=== PATIENT | female | born 1955 | race Caucasian/White ===

== ENCOUNTER 2023-05-25 05:47 | Observation (INO) | payer MEDICARE ==
[2023-05-25] MEDS ORDERED: Fentanyl 250 MCG/5 ML VIAL ONE (06:36)
[2023-05-25] MEDS ORDERED: SUGAMMADEX SODIUM 200 MG/2 ML VIAL ONE (06:36)
[2023-05-25] MEDS ORDERED: EPINEPHrine 1 MG/ML AMP ONE (07:03)
[2023-05-25] MEDS ORDERED: Bupivacaine 0.25% HCL 30 ML VIAL ONE (07:03)
[2023-05-25] MEDS ORDERED: LevoFLOXacin 500 mg/D5W 100 ML BAG ONE (07:27)
[2023-05-25] MEDS ORDERED: PHENYLEPHRINE-NS 100 MCG/ML 10 ML SYRINGE ONE (07:40)
[2023-05-25] MEDS ORDERED: Rocuronium Bromide 10 MG/ML (10ML VIAL) ONE (07:40)
[2023-05-25] MEDS ORDERED: Ondansetron PF 4 MG/2 ML Vial ONE (07:40)
[2023-05-25] MEDS ORDERED: Dexamethasone 20 MG/5 ML VIAL ONE (07:40)
[2023-05-25] MEDS ORDERED: Lidocaine 1% PF 5 ML VIAL ONE (07:40)
[2023-05-25] MEDS ORDERED: PROPOFOL 200 MG/20 ML VIAL ONE (07:40)
[2023-05-25] MEDS ORDERED: Promethazine HCl 25 MG/ML VIAL IM PRN ×2 (07:58→10:03)
[2023-05-25] MEDS ORDERED: Ondansetron HCl/PF 4 MG/2 ML Vial IVP PRN (07:58)
[2023-05-25] MEDS ORDERED: Rocuronium Bromide 50 MG/5 ML VIAL ONE (08:41)
[2023-05-25] MEDS ORDERED: fentaNYL 50 mcg/mL 1 mL Vial ONE ×2 (09:41→10:10)
[2023-05-25] MEDS ORDERED: HALOBETASOL PROPIONATE 0.05% TOP SCH (10:03)
[2023-05-25] MEDS ORDERED: Acetaminophen 325 MG TAB PO PRN (10:03)
[2023-05-25] MEDS ORDERED: Morphine 4 MG/ML VIAL SLOW IVP PRN (10:03)
[2023-05-25] MEDS ORDERED: hydrALAZINE 20 MG/ML VIAL SLOW IVP PRN (10:03)
[2023-05-25] MEDS ORDERED: Dextrose 5% in Water 1,000 ML IV PRN (10:03)
[2023-05-25] MEDS ORDERED: Glucagon 1 MG/ML KIT IM PRN (10:03)
[2023-05-25] MEDS ORDERED: Ipratropium/Albuterol 3 ML NEB NEB PRN (10:03)
[2023-05-25] MEDS ORDERED: Ketorolac Tromethamine 30 MG/ML VIAL IVP PRN (10:03)
[2023-05-25] MEDS ORDERED: Dextrose 50% Abboject 50 ML SYRINGE SLOW IVP PRN (10:03)
[2023-05-25] MEDS ORDERED: Ondansetron PF 4 MG/2 ML Vial IVP PRN (10:03)
[2023-05-25] MEDS ORDERED: Hydrocodone-Acetamin 15 ML UDCUP PO PRN (10:03)
[2023-05-25 11:17] VITALS: BMI 35.3
[2023-05-25] MEDS: Sodium Chloride 0.9% 1,000 ML IV SCH ×2 (11:55→21:00)
[2023-05-25] MEDS: Ipratropium/Albuterol 3 ML NEB NEB SCH ×2 (13:51→18:21)
[2023-05-25] MEDS: Mometasone 100 MCG/PUFF (1 INHALER) INH SCH (18:23)
[2023-05-26] MEDS: Ipratropium/Albuterol 3 ML NEB NEB SCH ×3 (01:10→12:11)
[2023-05-26] MEDS ORDERED: Levothyroxine 150 MCG TAB PO SCH (06:00)
[2023-05-26] MEDS: Mometasone 100 MCG/PUFF (1 INHALER) INH SCH (06:53)
[2023-05-26] MEDS ORDERED: Magnesium Oxide 250 MG TAB PO SCH (09:00)
[2023-05-26] MEDS ORDERED: Amlodipine 10 MG TAB PO SCH (09:00)
[2023-05-26 11:58] VITALS: BP 122/76; TEMP 98.1
== END 2023-05-26 15:21 | disposition home or self-care (01) ==
LOC: SDC 05:47 → T4-A 09:56
PROVIDERS: ADMIT Surgery; ATTEND Surgery
PROC: 0BQT4ZZ Repair Diaphragm, Percutaneous Endoscopic Approach (ICD-10-PCS; principal; 2023-05-25)
DX: K44.9 Diaphragmatic hernia without obstruction or gangrene (principal); E11.9 Type 2 diabetes mellitus without complications; I10 Essential (primary) hypertension; Z79.899 Other long term (current) drug therapy; Z88.1 Allergy status to other antibiotic agents; Z90.49 Acquired absence of other specified parts of digestive tract; Z90.710 Acquired absence of both cervix and uterus
CPT/HCPCS: 43281; 94640 ×3; J3010; J0171; J1100; J1650; J1885; J1956; J2405; J2704; J7050; J7620; S0020

== ENCOUNTER 2023-07-14 11:09 | Emergency (ER) | payer MEDICARE ==
[2023-07-14] MEDS ORDERED: Glucagon 1 MG/ML KIT ONE (12:10)
== END 2023-07-14 14:14 | disposition home or self-care (01) ==
LOC: ERS 11:09
DX: T17.200A Unspecified foreign body in pharynx causing asphyxiation, initial encounter (principal); I10 Essential (primary) hypertension; E03.9 Hypothyroidism, unspecified
CPT/HCPCS: 71046; J1611; 96374

== ENCOUNTER 2023-07-14 15:59 | Observation (INO) | payer MEDICARE ==
[~2023-07-14 15:59] MED LIST: Iopamidol-370 76% 500 ML MDV (1 ML CHARGE) ONE
[2023-07-14] MEDS ORDERED: Ondansetron PF 4 MG/2 ML Vial ONE (17:57)
[2023-07-14] MEDS ORDERED: Pantoprazole 40 MG VIAL ONE (17:57)
[2023-07-14 18:06] LABS: #Basophils 0.1 thou/uL (0.0-0.2); #Eosinphils 0.1 thou/uL (0.0-0.7); #Neutrophils 8.9 thou/uL (1.40-6.50); %Basophils 0.5 % (0.0-1.0); %Eosinophils 0.5 % (0.0-10.0); %Monocytes 8.1 % (0.0-10.0); %Neutrophils 73.5 % (42.0-75.0); Hemoglobin 15.1 g/dL (12.0-16.0); Mean Corpuscular HGB CONC 33.6 g/dL (32.0-36.0); Mean Corpuscular Hemoglobin 29.3 pg (27.0-31.0); Mean Corpuscular Volume 87.2 fl (78.0-98.0); Mean Platelet Volume 9.7 fL (7.4-10.4); Platelet Count 279 10x3/uL (130-400); RBC Distribution Width 13.8 % (11.5-14.5); Red Blood Cell (RBC) Count 5.16 mill/uL (4.20-5.40); White Blood Cell (WBC) Count 12.1 10x3/uL (4.8-10.8)
[2023-07-14 18:32] LABS: ALT (SGPT) 14 U/L (8-55); AST (SGOT) 18 U/L (5-34); Alkaline Phosphatase 116 U/L (40-110); Anion Gap 12 mmol/L (10-20); BUN (Urea Nitrogen) 12 mg/dL (9.8-20.1); Bilirubin, Total 0.8 mg/dL (0.2-1.2); Calc. Creatinine Clearance 0 mL/min (70-130); Calcium 9.7 mg/dL (7.8-10.44); Carbon Dioxide 27 mmol/L (23-31); Chloride 103 mmol/L (98-107); Estimated GFR 74; Globulin 3.9 g/dL (2.4-3.5); Glucose 134 mg/dL (80-115); Lipase 14 U/L (8-78); Potassium 4.2 mmol/L (3.5-5.1); Protein, Total 7.9 g/dL (5.8-8.1); Sodium 138 mmol/L (136-145)
[2023-07-14] MEDS ORDERED: Acetaminophen 325 MG TAB PO PRN (20:19)
[2023-07-14] MEDS ORDERED: Ondansetron PF 4 MG/2 ML Vial IVP PRN (20:19)
[2023-07-14] MEDS ORDERED: Acetaminophen 650 MG Suppository PR PRN (20:19)
[2023-07-14] MEDS ORDERED: Ondansetron ODT 4 MG TAB PO PRN (20:19)
[2023-07-14 23:19] VITALS: BMI 32.8
[2023-07-15 07:56] LABS: #Eosinphils 0.1 thou/uL (0.0-0.7); #Monocytes 0.8 thou/uL (0.11-0.59); #Neutrophils 4.4 thou/uL (1.40-6.50); %Basophils 0.5 % (0.0-1.0); %Eosinophils 1.6 % (0.0-10.0); %Lymphocytes 26.5 % (21.0-51.0); %Monocytes 11.1 % (0.0-10.0); %Neutrophils 59.9 % (42.0-75.0); Hematocrit 42.1 % (36.0-47.0); Hemoglobin 13.8 g/dL (12.0-16.0); Mean Corpuscular HGB CONC 32.8 g/dL (32.0-36.0); Mean Corpuscular Hemoglobin 29.1 pg (27.0-31.0); Mean Corpuscular Volume 88.8 fl (78.0-98.0); Mean Platelet Volume 10.1 fL (7.4-10.4); Platelet Count 234 10x3/uL (130-400); RBC Distribution Width 13.8 % (11.5-14.5); Red Blood Cell (RBC) Count 4.74 mill/uL (4.20-5.40); White Blood Cell (WBC) Count 7.3 10x3/uL (4.8-10.8)
[2023-07-15 08:05] LABS: Hemoglobin A1c 6.1 % (4.0-6.0)
[2023-07-15 08:14] LABS: Anion Gap 11 mmol/L (10-20); BUN (Urea Nitrogen) 9 mg/dL (9.8-20.1); Calc. Creatinine Clearance 105 mL/min (70-130); Calcium 8.9 mg/dL (7.8-10.44); Carbon Dioxide 25 mmol/L (23-31); Chloride 107 mmol/L (98-107); Estimated GFR 88; Glucose 98 mg/dL (80-115); Sodium 139 mmol/L (136-145)
[2023-07-15] MEDS ORDERED: Pantoprazole 40 MG VIAL IVP SCH (09:00)
[2023-07-15] MEDS ORDERED: PROPOFOL 200 MG/20 ML VIAL ONE (11:58)
[2023-07-15] MEDS ORDERED: Ondansetron PF 4 MG/2 ML Vial ONE (11:58)
[2023-07-15] MEDS ORDERED: Ondansetron HCl/PF 4 MG/2 ML Vial IVP PRN (12:08)
[2023-07-15] MEDS ORDERED: Promethazine HCl 25 MG/ML VIAL IM PRN (12:08)
[2023-07-15 13:09] VITALS: BP 138/76; TEMP 98.2
== END 2023-07-15 15:32 | disposition home or self-care (01) ==
LOC: ERS 15:59 → T4-B 21:59
PROVIDERS: ADMIT Student in an Organized Health Care Education/Training Program; ATTEND Internal Medicine
PROC: 0DB68ZX Excision of Stomach, Via Natural or Artificial Opening Endoscopic, Diagnostic (ICD-10-PCS; principal; 2023-07-15)
PROC: 0DC58ZZ Extirpation of Matter from Esophagus, Via Natural or Artificial Opening Endoscopic (ICD-10-PCS; 2023-07-15)
PROC: 0D758ZZ Dilation of Esophagus, Via Natural or Artificial Opening Endoscopic (ICD-10-PCS; 2023-07-15)
DX: T18.128A Food in esophagus causing other injury, initial encounter (principal); K21.9 Gastro-esophageal reflux disease without esophagitis; K31.89 Other diseases of stomach and duodenum; D72.829 Elevated white blood cell count, unspecified; R73.9 Hyperglycemia, unspecified; R91.1 Solitary pulmonary nodule; K44.9 Diaphragmatic hernia without obstruction or gangrene; I10 Essential (primary) hypertension; E03.9 Hypothyroidism, unspecified; Z98.890 Other specified postprocedural states; Z88.1 Allergy status to other antibiotic agents; Z79.890 Hormone replacement therapy; Z79.899 Other long term (current) drug therapy; Z90.710 Acquired absence of both cervix and uterus; Z90.49 Acquired absence of other specified parts of digestive tract; T17.200A Unspecified foreign body in pharynx causing asphyxiation, initial encounter
CPT/HCPCS: 43239; 43247; 43249; 71046; 71260; 74177; 80048; 80053; 83036; 83690; 85025 ×2; 93005; 96374; 96375 ×2; 99283; 99285; G0378 ×3; J1611; 36415; 88305; 88342; C9113; J2405; J2704; Q9967

== ENCOUNTER 2023-09-05 12:16 | Emergency (ER) | payer MEDICARE ==
[2023-09-05] MEDS ORDERED: Dicyclomine 20 MG/2 ML VIAL ONE (12:55)
[2023-09-05 13:13] LABS: #Basophils 0.1 thou/uL (0.0-0.2); #Eosinphils 0.1 thou/uL (0.0-0.7); #Monocytes 1.6 thou/uL (0.11-0.59); %Basophils 0.4 % (0.0-1.0); %Eosinophils 0.4 % (0.0-10.0); %Lymphocytes 11.7 % (21.0-51.0); %Monocytes 11.1 % (0.0-10.0); %Neutrophils 75.8 % (42.0-75.0); Hematocrit 43.4 % (36.0-47.0); Hemoglobin 14.9 g/dL (12.0-16.0); Mean Corpuscular HGB CONC 34.3 g/dL (32.0-36.0); Mean Corpuscular Hemoglobin 29.6 pg (27.0-31.0); Mean Corpuscular Volume 86.3 fl (78.0-98.0); Mean Platelet Volume 10.5 fL (7.4-10.4); Platelet Count 281 10x3/uL (130-400); RBC Distribution Width 13.6 % (11.5-14.5); Red Blood Cell (RBC) Count 5.03 mill/uL (4.20-5.40); White Blood Cell (WBC) Count 14.5 10x3/uL (4.8-10.8)
[2023-09-05 13:40] LABS: ALT (SGPT) 10 U/L (8-55); AST (SGOT) 13 U/L (5-34); Albumin 4.3 g/dL (3.4-4.8); Alkaline Phosphatase 100 U/L (40-110); Anion Gap 16 mmol/L (10-20); BUN (Urea Nitrogen) 12 mg/dL (9.8-20.1); Bilirubin, Total 0.6 mg/dL (0.2-1.2); Calc. Creatinine Clearance 0 mL/min (70-130); Calcium 9.6 mg/dL (7.8-10.44); Carbon Dioxide 22 mmol/L (23-31); Chloride 98 mmol/L (98-107); Estimated GFR 69; Glucose 140 mg/dL (80-115); Lipase 8 U/L (8-78); Potassium 3.7 mmol/L (3.5-5.1); Protein, Total 8.3 g/dL (5.8-8.1); Sodium 132 mmol/L (136-145)
[2023-09-05 13:42] LABS: Troponin I Less than 0.010 ng/mL (< 0.028)
== END 2023-09-05 18:50 | disposition home or self-care (01) ==
LOC: ERS 12:16
DX: R13.10 Dysphagia, unspecified (principal); I10 Essential (primary) hypertension; E03.9 Hypothyroidism, unspecified
CPT/HCPCS: 36415; 71045; 71250; 80053; 83690; 84484; 85025; 93005; 96372